=== PATIENT | male | born 1985 | race Caucasian/White ===

== ENCOUNTER 2020-11-03 06:53 | Emergency (ER) | payer SELFPAY ==
[2020-11-03 06:55] VITALS: BP 158/102; PULSE 61; RESP 18; TEMP 36.2; O2SAT 100; BMI 27.1
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
[2020-11-03] MEDS: Ondansetron ODT 4 MG Tablet PO (07:14)
[2020-11-03] MEDS: Naproxen 500 MG Tablet PO (07:51)
== END 2020-11-03 07:53 | disposition home or self-care (01) ==
PROVIDERS: Emergency Provider Emergency Medicine
DX: S06.0X0A Concussion without loss of consciousness, initial encounter (principal); V47.5XXA Car driver injured in collision with fixed or stationary object in traffic accident, initial encounter; Y93.9 Activity, unspecified; Y92.9 Unspecified place or not applicable
CPT/HCPCS: 70450; 72125; 99283